=== PATIENT | female | born 1975 | race Hispanic/Latino ===

== ENCOUNTER → 2025-10-09 | Emergency (ER) | payer OTHER, BC ==
[~2025-10-09] VITALS: Ht 154.9 cm; Wt 86.6 kg
[~2025-10-09] MED LIST: LISI1TAB49 PO; METF-444 PO
[2025-10-09 14:23] VITALS: BP 123/76; PULSE 90; RESP 18; TEMP 98.1
== END ==
LOC: EDH 14:21
DX: Z04.1 Encounter for examination and observation following transport accident (principal)
CPT/HCPCS: 99281